=== PATIENT | male | born 1960 | race Asian ===

== ENCOUNTER 2021-08-29 20:57 | Emergency (ER) | payer OTHER ==
[~2021-08-29] VITALS: Ht 165.1 cm; Wt 81.6 kg
[2021-08-29] MEDS ORDERED: ACETAMINOPHEN 325 MG TAB PO ONE (21:15)
[2021-08-30 08:14] VITALS: BP 106/73
[2021-09-14] MEDS ORDERED: ZINC220T6 PO (15:40)
[2021-09-14] MEDS ORDERED: DEX4T PO (15:40)
[2021-09-14] MEDS ORDERED: BUDE2SUS3 IN (15:40)
[2021-09-14] MEDS ORDERED: CHOL20007 PO (15:40)
[2021-09-14] MEDS ORDERED: FAMO20TA10 PO (15:40)
[2021-09-14] MEDS ORDERED: ASCO10003 PO (15:40)
[2021-09-14] MEDS ORDERED: ALBUAER3 IN (15:40)
[2021-09-14] MEDS ORDERED: DOXY-286 PO (15:40)
== END 2021-08-30 09:07 | disposition home or self-care (01) ==
LOC: ER 21:04
DX: U07.1 COVID-19 (principal); J06.9 Acute upper respiratory infection, unspecified; I10 Essential (primary) hypertension; E11.9 Type 2 diabetes mellitus without complications; E78.5 Hyperlipidemia, unspecified
CPT/HCPCS: 36415; 71045; 87426

== ENCOUNTER 2021-09-07 18:04 | Inpatient (IN) | payer OTHER ==
[~2021-09-07] VITALS: Ht 167.6 cm; Wt 82.0 kg
[2021-09-07] MEDS ORDERED: CHOLECALCIFEROL (VITD3) 2,000 UNIT CAP/TAB PO ONE (18:30)
[2021-09-07] MEDS ORDERED: AZITHROMYCIN 500MG/ 250ML 250 ML IV ONE (18:30)
[2021-09-07] MEDS ORDERED: methylPREDNISolone SOD SUCC 125 MG/2 ML VL IV ONE (18:30)
[2021-09-07] MEDS ORDERED: ZINC SULFATE 220mg CAP or TAB PO ONE (18:30)
[2021-09-07] MEDS ORDERED: REMDESIVIR PER PHARMACY 0 ML IV SCH (18:30)
[2021-09-07] MEDS ORDERED: ASCORBIC ACID 500 MG TAB PO ONE (18:30)
[2021-09-07 19:00] LABS: Albumin 2.3 g/dL (3.4-5.0); Magnesium 2.7 mg/dL (1.6-2.6); Potassium 4.7 mmol/L (3.5-5.1)
[2021-09-07 19:02] LABS: Lactic Acid w/Reflex 2.7 mmol/L (0.4-2.0)
[2021-09-07 19:08] LABS: BUN/Creatinine Ratio 12.4; Bilirubin, Total 0.5 mg/dL (0.2-1.0); CRP High Sensitivity 13.3 mg/dL (< 0.3); Total Protein 7.8 g/dL (6.4-8.2)
[2021-09-07 19:30] LABS: Basophils # (auto) 0.2 10 ^3/uL (0-0.2); Basophils % (auto) 2.1 % (0.0-2.0); Eosinophils # (auto) 0.1 10 ^3/uL (0-0.8); Hematocrit 41.8 % (41.0-53.0); Lymphocytes # (auto) 0.6 10 ^3/uL (0.4-5.4); Lymphocytes % (auto) 6.1 % (10.0-50.0); Mean Corpuscular Hemoglobin 30.4 pg (28.0-32.0); Mean Corpuscular Hgb Conc. 33.5 g/dL (32.0-36.0); Mean Corpuscular Volume 90.8 fL (80.0-100.0); Monocytes # (auto) 0.4 10 ^3/uL (0-1.3); Monocytes % (auto) 4.1 % (0.0-12.0); Neutrophils # (auto) 8.2 10 ^3/uL (1.6-8.6); Neutrophils % (auto) 86.7 % (37.0-80.0); Nucleated Red Blood Cells % 0.2 %; Red Cell Distribution Width 13.8 % (11.8-14.3); White Blood Cell 9.4 10^3/uL (4.4-10.8)
[2021-09-07] MEDS ORDERED: DEXTROSE (50%) 50ML SYRG IV PRN (20:00)
[2021-09-07] MEDS ORDERED: MORPHINE SULFATE INJECTION 2 MG/ML SYRG IV PRN (20:00)
[2021-09-07] MEDS ORDERED: cefTRIAXone 1GM/50ML D5W 50 ML IV ONE (20:00)
[2021-09-07] MEDS ORDERED: NITROGLYCERIN 0.4 MG SL TAB SL PRN (20:00)
[2021-09-07] MEDS ORDERED: ONDANSETRON HCL 4 MG/2 ML VIAL IV PRN (20:00)
[2021-09-07] MEDS ORDERED: TEMAZEPAM 15 MG CAP PO PRN (20:00)
[2021-09-07] MEDS ORDERED: ACETAMINOPHEN 500 MG TAB PO PRN (20:00)
[2021-09-07 20:03] LABS: Urine WBC None Seen /hpf (0 - 3)
[2021-09-07 20:29] LABS: Urine Bacteria NONE SEEN /hpf (None Seen); Urine Blood Negative /uL (Negative); Urine Specific Gravity 1.019 (1.001-1.035)
[2021-09-07] MEDS ORDERED: IOHEXOL 350 MG/ML 100ML IJ ONE (20:53)
[2021-09-07] MEDS ORDERED: REMDESIVIR 200 MG in NS 210ml LOADING DOSE ADULT IV ONE (21:30)
[2021-09-07] MEDS: ACCU-CHEK COMFORT CURVE STRIP VI SCH (21:46)
[2021-09-07] MEDS: METOPROLOL TARTRATE 50 MG TAB PO SCH (21:52)
[2021-09-07] MEDS: GABAPENTIN 300 MG CAP PO SCH (21:53)
[2021-09-07] MEDS: ENOXAPARIN SOD 40 MG/0.4 ML SYRINGE SC SCH (21:53)
[2021-09-07] MEDS ORDERED: ATORVASTATIN 20 MG TAB PO SCH (22:00)
[2021-09-07] MEDS: InsuLIN REG 1unit/0.01ml Soln (100units/ml) SC SCH (22:01)
[2021-09-07 22:23] VITALS: BP 145/71
[2021-09-08] MEDS ORDERED: ASPI1TAB20 PO (01:29)
[2021-09-08] MEDS ORDERED: LOSA-39 PO (01:29)
[2021-09-08] MEDS ORDERED: ATOR20TA PO (01:29)
[2021-09-08] MEDS ORDERED: GLIM2TAB33 PO (01:29)
[2021-09-08] MEDS ORDERED: AMLO-489 PO (01:29)
[2021-09-08] MEDS ORDERED: METF-370 PO (01:29)
[2021-09-08] MEDS ORDERED: METO-159 PO (01:29)
[2021-09-08] MEDS ORDERED: PIO30T PO (01:29)
[2021-09-08] MEDS ORDERED: PNEUMOCOCCAL VACC POLYS 25 MCG/0.5 ML VIAL IM ONE ×2 (01:30→09:00)
[2021-09-08] MEDS ORDERED: INFLUENZA QUAD 2021-2022 0.5 ML SYRG IM ONE (01:30)
[2021-09-08 01:56] VITALS: BP 154/78
[2021-09-08 05:00] VITALS: BP 143/70
[2021-09-08] MEDS: GABAPENTIN 300 MG CAP PO SCH ×3 (06:39→22:01)
[2021-09-08] MEDS: InsuLIN REG 1unit/0.01ml Soln (100units/ml) SC SCH ×4 (06:41→22:04)
[2021-09-08] MEDS: ACCU-CHEK COMFORT CURVE STRIP VI SCH ×4 (06:41→22:03)
[2021-09-08 08:00] LABS: Albumin 2.3 g/dL (3.4-5.0); BUN/Creatinine Ratio 17.1; Potassium 4.6 mmol/L (3.5-5.1)
[2021-09-08 08:01] LABS: Basophils # (auto) 0.1 10 ^3/uL (0-0.2); Basophils % (auto) 0.7 % (0.0-2.0); Eosinophils # (auto) 0 10 ^3/uL (0-0.8); Hematocrit 42.8 % (41.0-53.0); Hemoglobin 14.3 g/dL (13.5-17.5); Lymphocytes # (auto) 0.6 10 ^3/uL (0.4-5.4); Lymphocytes % (auto) 7.1 % (10.0-50.0); Mean Corpuscular Hemoglobin 30.1 pg (28.0-32.0); Mean Corpuscular Hgb Conc. 33.5 g/dL (32.0-36.0); Mean Corpuscular Volume 89.9 fL (80.0-100.0); Monocytes # (auto) 0.2 10 ^3/uL (0-1.3); Monocytes % (auto) 2.7 % (0.0-12.0); Neutrophils % (auto) 89.5 % (37.0-80.0); Nucleated Red Blood Cells % 0.4 %; Red Blood Cells 4.76 10^6/uL (4.5-5.90); Red Cell Distribution Width 13.8 % (11.8-14.3); White Blood Cell 8.9 10^3/uL (4.4-10.8)
[2021-09-08 08:02] LABS: Bilirubin, Total 0.4 mg/dL (0.2-1.0); Total Protein 7.1 g/dL (6.4-8.2)
[2021-09-08 09:00] VITALS: BP 146/80
[2021-09-08] MEDS ORDERED: amLODIPine BESYLATE 5 MG TAB PO SCH (10:00)
[2021-09-08] MEDS: cefTRIAXone 1GM/50ML D5W 50 ML IV SCH (10:17)
[2021-09-08] MEDS: DexAMETHasone SOD PHOS 10MG/1ML VIAL INJ IV SCH (10:18)
[2021-09-08] MEDS: ZINC SULFATE 220mg CAP or TAB PO SCH (10:18)
[2021-09-08] MEDS: LOSARTAN POTASSIUM 50 MG TAB PO SCH (10:20)
[2021-09-08] MEDS: PANTOPRAZOLE 40 MG TAB PO SCH (10:21)
[2021-09-08] MEDS: METOPROLOL TARTRATE 50 MG TAB PO SCH ×2 (10:21→22:02)
[2021-09-08] MEDS: ASCORBIC ACID 1,000 MG TAB PO SCH (10:22)
[2021-09-08] MEDS: CHOLECALCIFEROL (VITD3) 2,000 UNIT CAP/TAB PO SCH (10:22)
[2021-09-08] MEDS: ENOXAPARIN SOD 40 MG/0.4 ML SYRINGE SC SCH ×2 (10:22→22:03)
[2021-09-08] MEDS: AZITHROMYCIN 500MG/ 250ML 250 ML IV SCH (11:30)
[2021-09-08 13:00] VITALS: BP 151/79
[2021-09-08] MEDS ORDERED: IVERMECTIN 3 MG TAB PO ONE (14:49)
[2021-09-08] MEDS ORDERED: FUROSEMIDE 20 MG/2 ML VIAL IV ONE (15:00)
[2021-09-08 17:00] VITALS: BP 143/72
[2021-09-08] MEDS: REMDESIVIR 100mg 100 MG in SODIUM CHL 0.9% 230 ML IV SCH (17:59)
[2021-09-08] MEDS: FUROSEMIDE 20 MG/2 ML VIAL IV SCH (18:00)
[2021-09-08] MEDS: BUDESONIDE (INHALATION) 180 MCG IH IN SCH (20:47)
[2021-09-08 22:00] VITALS: BP 141/75
[2021-09-08] MEDS: POTASSIUM CHL 10 Meq TABLET PO SCH (22:02)
[2021-09-09 05:00] VITALS: BP 149/76
[2021-09-09 06:22] LABS: INR 1.04 (0.9-1.15)
[2021-09-09 06:24] LABS: Potassium 4.3 mmol/L (3.5-5.1)
[2021-09-09] MEDS: GABAPENTIN 300 MG CAP PO SCH ×3 (06:38→21:54)
[2021-09-09] MEDS: FUROSEMIDE 20 MG/2 ML VIAL IV SCH ×2 (06:39→17:54)
[2021-09-09 06:40] LABS: Albumin 2.2 g/dL (3.4-5.0); BUN/Creatinine Ratio 21.3; Bilirubin, Total 0.4 mg/dL (0.2-1.0); CRP High Sensitivity 6.42 mg/dL (< 0.3); Magnesium 2.1 mg/dL (1.6-2.6); Total Protein 6.8 g/dL (6.4-8.2)
[2021-09-09] MEDS: ACCU-CHEK COMFORT CURVE STRIP VI SCH ×4 (06:40→23:50)
[2021-09-09] MEDS: InsuLIN REG 1unit/0.01ml Soln (100units/ml) SC SCH ×4 (06:40→22:48)
[2021-09-09 07:09] LABS: Basophils # (auto) 0 10 ^3/uL (0-0.2); Basophils % (auto) 0.2 % (0.0-2.0); Eosinophils # (auto) 0 10 ^3/uL (0-0.8); Eosinophils % (auto) 0.1 % (0.0-7.0); Hemoglobin 13.9 g/dL (13.5-17.5); Mean Corpuscular Hemoglobin 30.6 pg (28.0-32.0); Mean Corpuscular Hgb Conc. 33.9 g/dL (32.0-36.0); Mean Corpuscular Volume 90.1 fL (80.0-100.0); Monocytes # (auto) 0.9 10 ^3/uL (0-1.3); Neutrophils # (auto) 10.7 10 ^3/uL (1.6-8.6); Neutrophils % (auto) 84.7 % (37.0-80.0); Nucleated Red Blood Cells % 0.3 %; Red Blood Cells 4.54 10^6/uL (4.5-5.90); Red Cell Distribution Width 13.8 % (11.8-14.3); White Blood Cell 12.7 10^3/uL (4.4-10.8)
[2021-09-09] MEDS: cefTRIAXone 1GM/50ML D5W 50 ML IV SCH (08:48)
[2021-09-09 09:00] VITALS: BP 137/74
[2021-09-09] MEDS: DexAMETHasone SOD PHOS 10MG/1ML VIAL INJ IV SCH (09:50)
[2021-09-09] MEDS: AZITHROMYCIN 500MG/ 250ML 250 ML IV SCH (09:50)
[2021-09-09] MEDS: ZINC SULFATE 220mg CAP or TAB PO SCH (09:50)
[2021-09-09] MEDS: POTASSIUM CHL 10 Meq TABLET PO SCH ×2 (09:51→21:53)
[2021-09-09] MEDS: METOPROLOL TARTRATE 50 MG TAB PO SCH ×2 (09:51→21:54)
[2021-09-09] MEDS: PANTOPRAZOLE 40 MG TAB PO SCH (09:51)
[2021-09-09] MEDS: LOSARTAN POTASSIUM 50 MG TAB PO SCH (09:51)
[2021-09-09] MEDS: CHOLECALCIFEROL (VITD3) 2,000 UNIT CAP/TAB PO SCH (09:52)
[2021-09-09] MEDS: IVERMECTIN 3 MG TAB PO SCH (09:52)
[2021-09-09] MEDS: ENOXAPARIN SOD 40 MG/0.4 ML SYRINGE SC SCH ×2 (09:52→21:54)
[2021-09-09] MEDS: ASCORBIC ACID 1,000 MG TAB PO SCH (09:52)
[2021-09-09] MEDS ORDERED: DEXTROSE (50%) 50ML SYRG IV PRN (11:15)
[2021-09-09] MEDS: ALBUTEROL SULF HFA 90MCG INH 200DOSE IN PRN ×2 (11:52→21:31)
[2021-09-09] MEDS: BUDESONIDE (INHALATION) 180 MCG IH IN SCH ×2 (11:52→21:31)
[2021-09-09 12:30] VITALS: BP 143/76
[2021-09-09] MEDS: REMDESIVIR 100mg 100 MG in SODIUM CHL 0.9% 230 ML IV SCH (15:44)
[2021-09-09 17:00] VITALS: BP 140/73
[2021-09-09 22:00] VITALS: BP 143/70
[2021-09-09] MEDS: INSULIN LANTUS (GLARGINE) 1 /0.01ml (100units/ml) SC SCH (22:49)
[2021-09-10 05:00] VITALS: BP 121/81
[2021-09-10] MEDS: InsuLIN REG 1unit/0.01ml Soln (100units/ml) SC SCH ×4 (06:19→23:06)
[2021-09-10] MEDS: ACCU-CHEK COMFORT CURVE STRIP VI SCH ×4 (06:28→23:07)
[2021-09-10] MEDS: GABAPENTIN 300 MG CAP PO SCH ×3 (06:28→23:07)
[2021-09-10] MEDS: FUROSEMIDE 20 MG/2 ML VIAL IV SCH ×2 (06:37→17:30)
[2021-09-10 06:54] LABS: Magnesium 2.3 mg/dL (1.6-2.6); Potassium 4.5 mmol/L (3.5-5.1)
[2021-09-10 07:01] LABS: Albumin 2.4 g/dL (3.4-5.0); Bilirubin, Direct 0.2 mg/dL (0-0.2); Bilirubin, Total 0.4 mg/dL (0.2-1.0); Total Protein 7.2 g/dL (6.4-8.2)
[2021-09-10] MEDS: ALBUTEROL SULF HFA 90MCG INH 200DOSE IN PRN (07:04)
[2021-09-10] MEDS: BUDESONIDE (INHALATION) 180 MCG IH IN SCH ×2 (07:04→23:59)
[2021-09-10 07:29] LABS: Basophils # (auto) 0 10 ^3/uL (0-0.2); Basophils % (auto) 0.4 % (0.0-2.0); Eosinophils # (auto) 0 10 ^3/uL (0-0.8); Eosinophils % (auto) 0.1 % (0.0-7.0); Hematocrit 42.5 % (41.0-53.0); Hemoglobin 14.1 g/dL (13.5-17.5); Lymphocytes % (auto) 10.4 % (10.0-50.0); Mean Corpuscular Hemoglobin 29.8 pg (28.0-32.0); Mean Corpuscular Hgb Conc. 33.1 g/dL (32.0-36.0); Monocytes # (auto) 0.9 10 ^3/uL (0-1.3); Monocytes % (auto) 9.1 % (0.0-12.0); Neutrophils # (auto) 8.1 10 ^3/uL (1.6-8.6); Nucleated Red Blood Cells % 0.2 %; Red Blood Cells 4.72 10^6/uL (4.5-5.90); Red Cell Distribution Width 13.6 % (11.8-14.3); White Blood Cell 10.1 10^3/uL (4.4-10.8)
[2021-09-10 09:00] VITALS: BP 127/72
[2021-09-10] MEDS: DexAMETHasone SOD PHOS 10MG/1ML VIAL INJ IV SCH (09:48)
[2021-09-10] MEDS: ZINC SULFATE 220mg CAP or TAB PO SCH (09:49)
[2021-09-10] MEDS: LOSARTAN POTASSIUM 50 MG TAB PO SCH (09:49)
[2021-09-10] MEDS: POTASSIUM CHL 10 Meq TABLET PO SCH ×2 (09:49→23:08)
[2021-09-10] MEDS: IVERMECTIN 3 MG TAB PO SCH (09:50)
[2021-09-10] MEDS: PANTOPRAZOLE 40 MG TAB PO SCH (09:50)
[2021-09-10] MEDS: METOPROLOL TARTRATE 50 MG TAB PO SCH ×2 (09:50→23:09)
[2021-09-10] MEDS: CHOLECALCIFEROL (VITD3) 2,000 UNIT CAP/TAB PO SCH (09:51)
[2021-09-10] MEDS: ASCORBIC ACID 1,000 MG TAB PO SCH (09:51)
[2021-09-10] MEDS: ENOXAPARIN SOD 40 MG/0.4 ML SYRINGE SC SCH ×2 (09:51→23:07)
[2021-09-10] MEDS: cefTRIAXone 1GM/50ML D5W 50 ML IV SCH (12:09)
[2021-09-10] MEDS: AZITHROMYCIN 500MG/ 250ML 250 ML IV SCH (12:09)
[2021-09-10 13:00] VITALS: BP 130/75
[2021-09-10] MEDS: REMDESIVIR 100mg 100 MG in SODIUM CHL 0.9% 230 ML IV SCH (15:39)
[2021-09-10 17:00] VITALS: BP 142/72
[2021-09-10 22:00] VITALS: BP 138/68
[2021-09-10] MEDS: INSULIN LANTUS (GLARGINE) 1 /0.01ml (100units/ml) SC SCH (23:06)
[2021-09-11 03:19] VITALS: BP 135/69
[2021-09-11 05:00] VITALS: BP 124/72
[2021-09-11] MEDS: ALBUTEROL SULF HFA 90MCG INH 200DOSE IN PRN ×3 (06:16→20:17)
[2021-09-11] MEDS: BUDESONIDE (INHALATION) 180 MCG IH IN SCH ×2 (06:17→18:58)
[2021-09-11] MEDS: FUROSEMIDE 20 MG/2 ML VIAL IV SCH ×2 (06:37→17:26)
[2021-09-11] MEDS: GABAPENTIN 300 MG CAP PO SCH ×3 (06:37→21:28)
[2021-09-11] MEDS: ACCU-CHEK COMFORT CURVE STRIP VI SCH ×4 (06:38→23:28)
[2021-09-11] MEDS: InsuLIN REG 1unit/0.01ml Soln (100units/ml) SC SCH ×4 (06:40→23:30)
[2021-09-11 07:15] LABS: Potassium 4.4 mmol/L (3.5-5.1)
[2021-09-11 07:22] LABS: Albumin 2.4 g/dL (3.4-5.0); BUN/Creatinine Ratio 27.3; Calcium 8.6 mg/dL (8.5-10.1)
[2021-09-11 07:24] LABS: Bilirubin, Total 0.4 mg/dL (0.2-1.0); Total Protein 6.9 g/dL (6.4-8.2)
[2021-09-11 07:33] LABS: Basophils # (auto) 0 10 ^3/uL (0-0.2); Basophils % (auto) 0.3 % (0.0-2.0); Eosinophils # (auto) 0 10 ^3/uL (0-0.8); Eosinophils % (auto) 0.2 % (0.0-7.0); Hematocrit 43.6 % (41.0-53.0); Hemoglobin 14.6 g/dL (13.5-17.5); Lymphocytes # (auto) 1.2 10 ^3/uL (0.4-5.4); Lymphocytes % (auto) 12.3 % (10.0-50.0); Mean Corpuscular Hemoglobin 30.3 pg (28.0-32.0); Mean Corpuscular Hgb Conc. 33.6 g/dL (32.0-36.0); Mean Corpuscular Volume 90.2 fL (80.0-100.0); Monocytes % (auto) 9.6 % (0.0-12.0); Neutrophils # (auto) 7.8 10 ^3/uL (1.6-8.6); Neutrophils % (auto) 77.6 % (37.0-80.0); Nucleated Red Blood Cells % 0.4 %; Red Blood Cells 4.83 10^6/uL (4.5-5.90); Red Cell Distribution Width 13.7 % (11.8-14.3); White Blood Cell 10.1 10^3/uL (4.4-10.8)
[2021-09-11] MEDS: cefTRIAXone 1GM/50ML D5W 50 ML IV SCH (08:10)
[2021-09-11] MEDS: AZITHROMYCIN 500MG/ 250ML 250 ML IV SCH (08:10)
[2021-09-11] MEDS: DexAMETHasone SOD PHOS 10MG/1ML VIAL INJ IV SCH (08:11)
[2021-09-11] MEDS: ZINC SULFATE 220mg CAP or TAB PO SCH (08:11)
[2021-09-11] MEDS: POTASSIUM CHL 10 Meq TABLET PO SCH ×2 (08:13→21:27)
[2021-09-11] MEDS: LOSARTAN POTASSIUM 50 MG TAB PO SCH (08:13)
[2021-09-11] MEDS: METOPROLOL TARTRATE 50 MG TAB PO SCH ×2 (08:13→21:28)
[2021-09-11] MEDS: PANTOPRAZOLE 40 MG TAB PO SCH (08:14)
[2021-09-11] MEDS: ASCORBIC ACID 1,000 MG TAB PO SCH (08:20)
[2021-09-11] MEDS: CHOLECALCIFEROL (VITD3) 2,000 UNIT CAP/TAB PO SCH (08:20)
[2021-09-11] MEDS: ENOXAPARIN SOD 40 MG/0.4 ML SYRINGE SC SCH ×2 (08:20→21:28)
[2021-09-11] MEDS: IVERMECTIN 3 MG TAB PO SCH (08:20)
[2021-09-11 08:40] VITALS: BP 113/70
[2021-09-11 13:00] VITALS: BP 127/56
[2021-09-11] MEDS: REMDESIVIR 100mg 100 MG in SODIUM CHL 0.9% 230 ML IV SCH (16:09)
[2021-09-11 17:00] VITALS: BP 116/67
[2021-09-11 20:54] VITALS: BP 119/68
[2021-09-11] MEDS: INSULIN LANTUS (GLARGINE) 1 /0.01ml (100units/ml) SC SCH (21:25)
[2021-09-12 05:00] VITALS: BP 128/81
[2021-09-12] MEDS: ACCU-CHEK COMFORT CURVE STRIP VI SCH ×4 (05:08→21:45)
[2021-09-12] MEDS: InsuLIN REG 1unit/0.01ml Soln (100units/ml) SC SCH ×4 (05:11→23:11)
[2021-09-12] MEDS: GABAPENTIN 300 MG CAP PO SCH ×3 (05:13→21:45)
[2021-09-12] MEDS: FUROSEMIDE 20 MG/2 ML VIAL IV SCH (05:13)
[2021-09-12] MEDS: BUDESONIDE (INHALATION) 180 MCG IH IN SCH ×2 (07:56→22:00)
[2021-09-12] MEDS: ALBUTEROL SULF HFA 90MCG INH 200DOSE IN PRN (07:56)
[2021-09-12 09:02] VITALS: BP 114/71
[2021-09-12] MEDS: cefTRIAXone 1GM/50ML D5W 50 ML IV SCH (09:49)
[2021-09-12] MEDS: DexAMETHasone SOD PHOS 10MG/1ML VIAL INJ IV SCH (09:50)
[2021-09-12] MEDS: ZINC SULFATE 220mg CAP or TAB PO SCH (09:51)
[2021-09-12] MEDS: LOSARTAN POTASSIUM 50 MG TAB PO SCH (09:52)
[2021-09-12] MEDS: METOPROLOL TARTRATE 50 MG TAB PO SCH ×2 (09:53→21:45)
[2021-09-12] MEDS: POTASSIUM CHL 10 Meq TABLET PO SCH ×2 (09:53→21:41)
[2021-09-12] MEDS: PANTOPRAZOLE 40 MG TAB PO SCH (09:53)
[2021-09-12] MEDS: IVERMECTIN 3 MG TAB PO SCH (09:54)
[2021-09-12] MEDS: ASCORBIC ACID 1,000 MG TAB PO SCH (09:55)
[2021-09-12] MEDS: CHOLECALCIFEROL (VITD3) 2,000 UNIT CAP/TAB PO SCH (09:56)
[2021-09-12] MEDS: ENOXAPARIN SOD 40 MG/0.4 ML SYRINGE SC SCH ×2 (09:56→21:45)
[2021-09-12] MEDS: traMADol HCL 50 MG TAB PO PRN ×2 (11:26→18:26)
[2021-09-12] MEDS: AZITHROMYCIN 500MG/ 250ML 250 ML IV SCH (11:31)
[2021-09-12 13:00] VITALS: BP 121/70
[2021-09-12 17:00] VITALS: BP 117/72
[2021-09-12 21:07] VITALS: BP 115/62
[2021-09-12] MEDS: INSULIN LANTUS (GLARGINE) 1 /0.01ml (100units/ml) SC SCH (21:51)
[2021-09-13 05:00] VITALS: BP 109/71
[2021-09-13 06:34] LABS: Albumin 2.5 g/dL (3.4-5.0); Calcium 8.3 mg/dL (8.5-10.1); Potassium 4.6 mmol/L (3.5-5.1)
[2021-09-13] MEDS: GABAPENTIN 300 MG CAP PO SCH ×3 (06:34→22:41)
[2021-09-13] MEDS: ACCU-CHEK COMFORT CURVE STRIP VI SCH ×4 (06:35→23:03)
[2021-09-13 06:37] LABS: BUN/Creatinine Ratio 26.1; Bilirubin, Total 0.5 mg/dL (0.2-1.0); Total Protein 6.9 g/dL (6.4-8.2)
[2021-09-13] MEDS: InsuLIN REG 1unit/0.01ml Soln (100units/ml) SC SCH ×4 (06:37→23:03)
[2021-09-13] MEDS: BUDESONIDE (INHALATION) 180 MCG IH IN SCH ×2 (07:25→21:13)
[2021-09-13] MEDS: ALBUTEROL SULF HFA 90MCG INH 200DOSE IN PRN ×2 (07:25→23:50)
[2021-09-13 08:50] VITALS: BP 131/68
[2021-09-13] MEDS: cefTRIAXone 1GM/50ML D5W 50 ML IV SCH (10:06)
[2021-09-13] MEDS: ZINC SULFATE 220mg CAP or TAB PO SCH (10:07)
[2021-09-13] MEDS: LOSARTAN POTASSIUM 50 MG TAB PO SCH (10:08)
[2021-09-13] MEDS: DexAMETHasone 4 MG TAB PO SCH (10:09)
[2021-09-13] MEDS: POTASSIUM CHL 10 Meq TABLET PO SCH ×2 (10:10→22:41)
[2021-09-13] MEDS: PANTOPRAZOLE 40 MG TAB PO SCH (10:11)
[2021-09-13] MEDS: METOPROLOL TARTRATE 50 MG TAB PO SCH ×2 (10:11→22:42)
[2021-09-13] MEDS: ASCORBIC ACID 1,000 MG TAB PO SCH (10:12)
[2021-09-13] MEDS: CHOLECALCIFEROL (VITD3) 2,000 UNIT CAP/TAB PO SCH (10:12)
[2021-09-13] MEDS: ENOXAPARIN SOD 40 MG/0.4 ML SYRINGE SC SCH ×2 (10:14→22:41)
[2021-09-13] MEDS: FUROSEMIDE 40 MG TAB PO SCH (10:26)
[2021-09-13 12:53] VITALS: BP 117/70
[2021-09-13 16:48] VITALS: BP 117/61
[2021-09-13 22:00] VITALS: BP 120/72
[2021-09-13] MEDS: INSULIN LANTUS (GLARGINE) 1 /0.01ml (100units/ml) SC SCH (22:43)
[2021-09-14 04:49] VITALS: BP 128/69
[2021-09-14] MEDS: InsuLIN REG 1unit/0.01ml Soln (100units/ml) SC SCH ×2 (05:42→12:00)
[2021-09-14] MEDS: ACCU-CHEK COMFORT CURVE STRIP VI SCH ×2 (05:43→12:00)
[2021-09-14] MEDS: GABAPENTIN 300 MG CAP PO SCH ×2 (05:44→13:57)
[2021-09-14 08:22] LABS: Potassium 4.5 mmol/L (3.5-5.1)
[2021-09-14 08:32] LABS: Albumin 2.6 g/dL (3.4-5.0); BUN/Creatinine Ratio 26.4; Bilirubin, Total 0.5 mg/dL (0.2-1.0); Calcium 8.5 mg/dL (8.5-10.1); Total Protein 6.9 g/dL (6.4-8.2)
[2021-09-14 08:40] VITALS: BP 112/64
[2021-09-14 08:53] LABS: Basophils # (auto) 0 10 ^3/uL (0-0.2); Basophils % (auto) 0.3 % (0.0-2.0); Eosinophils # (auto) 0.1 10 ^3/uL (0-0.8); Eosinophils % (auto) 0.6 % (0.0-7.0); Hematocrit 43.8 % (41.0-53.0); Hemoglobin 14.6 g/dL (13.5-17.5); Lymphocytes # (auto) 1.5 10 ^3/uL (0.4-5.4); Lymphocytes % (auto) 15.4 % (10.0-50.0); Mean Corpuscular Hemoglobin 30.2 pg (28.0-32.0); Mean Corpuscular Hgb Conc. 33.3 g/dL (32.0-36.0); Mean Corpuscular Volume 90.7 fL (80.0-100.0); Monocytes # (auto) 0.8 10 ^3/uL (0-1.3); Neutrophils # (auto) 7.6 10 ^3/uL (1.6-8.6); Neutrophils % (auto) 75.7 % (37.0-80.0); Nucleated Red Blood Cells % 0.1 %; Red Blood Cells 4.83 10^6/uL (4.5-5.90); Red Cell Distribution Width 13.6 % (11.8-14.3)
[2021-09-14] MEDS: BUDESONIDE (INHALATION) 180 MCG IH IN SCH (09:16)
[2021-09-14] MEDS: ALBUTEROL SULF HFA 90MCG INH 200DOSE IN PRN (09:16)
[2021-09-14] MEDS: METOPROLOL TARTRATE 50 MG TAB PO SCH (09:32)
[2021-09-14] MEDS: cefTRIAXone 1GM/50ML D5W 50 ML IV SCH (09:34)
[2021-09-14] MEDS: DexAMETHasone 4 MG TAB PO SCH (09:35)
[2021-09-14] MEDS: ZINC SULFATE 220mg CAP or TAB PO SCH (09:35)
[2021-09-14] MEDS: LOSARTAN POTASSIUM 50 MG TAB PO SCH (09:35)
[2021-09-14] MEDS: ENOXAPARIN SOD 40 MG/0.4 ML SYRINGE SC SCH (09:36)
[2021-09-14] MEDS: FUROSEMIDE 40 MG TAB PO SCH (09:36)
[2021-09-14] MEDS: POTASSIUM CHL 10 Meq TABLET PO SCH (09:36)
[2021-09-14] MEDS: CHOLECALCIFEROL (VITD3) 2,000 UNIT CAP/TAB PO SCH (09:36)
[2021-09-14] MEDS: ASCORBIC ACID 1,000 MG TAB PO SCH (09:36)
[2021-09-14] MEDS: PANTOPRAZOLE 40 MG TAB PO SCH (09:36)
[2021-09-14 12:49] VITALS: BP 119/69
[2021-09-14] MEDS ORDERED: DEX4T PO (15:40)
[2021-09-14] MEDS ORDERED: ASCO10003 PO (15:40)
[2021-09-14] MEDS ORDERED: ZINC220T6 PO (15:40)
[2021-09-14] MEDS ORDERED: FAMO20TA10 PO (15:40)
[2021-09-14] MEDS ORDERED: CHOL20007 PO (15:40)
[2021-09-14] MEDS ORDERED: DOXY-286 PO (15:40)
[2021-09-14] MEDS ORDERED: BUDE2SUS3 IN (15:40)
[2021-09-14] MEDS ORDERED: ALBUAER3 IN (15:40)
[2021-09-14 16:00] VITALS: BP 119/62
[2021-09-14 17:00] VITALS: BP 129/68
== END 2021-09-14 17:03 | disposition home or self-care (01) | DRG 177 ==
LOC: ER 18:07 → TELE 19:53 → TELE-EAST 23:31
PROVIDERS: ADMIT Nurse Practitioner; ATTEND Internal Medicine
PROC: XW033E5 Introduction of Remdesivir Anti-infective into Peripheral Vein, Percutaneous Approach, New Technology Group 5 (ICD-10-PCS; principal; 2021-09-07)
DX: U07.1 COVID-19 (principal); J12.82 Pneumonia due to coronavirus disease 2019; J96.00 Acute respiratory failure, unspecified whether with hypoxia or hypercapnia; E11.9 Type 2 diabetes mellitus without complications; I10 Essential (primary) hypertension; E78.5 Hyperlipidemia, unspecified; E55.9 Vitamin D deficiency, unspecified; D89.839 Cytokine release syndrome, grade unspecified; R79.89 Other specified abnormal findings of blood chemistry
CPT/HCPCS: 36415; 36600; 71045; 71275; 80053; 80061; 80076; 81001; 82306; 82728; 82805; 82962; 83036; 83605; 83615; 83735; 84132; 85025; 85379; 85610; 86141; 87040; 87426; 93005; 94640; 96365; 96366; 96368; 96375; 99291; G0378; J0696; J1100; J1815